=== PATIENT | male | born 1965 | race African-American/Black ===

== ENCOUNTER 2017-07-02 10:54 | Emergency (ER) | payer OTHER ==
[2017-07-02] MEDS ORDERED: Adacel (T-DAP) 0.5 ML VIAL ONE (11:26)
--- NOTE | 2017-07-02 11:35 | RAD ---
RIGHT FOOT 3 VIEWS: Date: 07/02/17 HISTORY: Right foot pain. Stepped on nail. FINDINGS: Lisfranc joint alignment is anatomic. Oblique linear lucency at the base of the second metatarsal on the AP view is favored to represent the crossing of the third metatarsal base. Fracture is not favore d. Pes planus is apparent on the lateral view. No acute fracture, dislocation, or metallic foreign tina s. Small plantar heel spur is noted. IMPRESSION: Incidental type findings as detailed above. No acute osseous abnormalities are demonstrated. POS: ELISHA
[2017-07-02 12:00] LABS: #Eosinphils 0.1 thou/uL (0.0-0.7); #Lymphocytes 1.9 thou/uL (1.20-3.40); #Monocytes 0.6 thou/uL (0.11-0.59); #Neutrophils 3.4 thou/uL (1.40-6.50); %Basophils 0.7 % (0.0-1.0); %Lymphocytes 31.4 % (21.0-51.0); %Monocytes 9.2 % (0.0-10.0); %Neutrophils 56.8 % (42.0-75.0); Hemoglobin 14.6 g/dL (14.0-18.0); Mean Corpuscular HGB CONC 32.9 g/dL (32.0-36.0); Mean Corpuscular Hemoglobin 28.7 pg (27.0-31.0); Mean Corpuscular Volume 87.1 fl (80.0-94.0); Mean Platelet Volume 7.9 fL (7.4-10.4); Platelet Count 209 thou/uL (130-400); RBC Distribution Width 13.7 % (11.5-14.5); Red Blood Cell (RBC) Count 5.08 mill/uL (4.70-6.10)
[2017-07-02 12:20] LABS: ALT (SGPT) 25 U/L (8-55); AST (SGOT) 25 U/L (5-34); Alkaline Phosphatase 79 U/L (40-150); Anion Gap 13 mmol/L (10-20); BUN (Urea Nitrogen) 19 mg/dL (8.4-25.7); Bilirubin, Total 0.4 mg/dL (0.2-1.2); Calc. Creatinine Clearance 0 mL/min (70-130); Calcium 9.1 mg/dL (7.8-10.44); Carbon Dioxide 22 mmol/L (22-29); Chloride 110 mmol/L (98-107); Estimated GFR-MDRD 81; Globulin 3.2 g/dL (2.4-3.5); Glucose 104 mg/dL (70-105); Potassium 4.1 mmol/L (3.5-5.1); Protein, Total 7.2 g/dL (6.0-8.3); Sodium 141 mmol/L (136-145)
[2017-07-02 12:25] LABS: CKMB 3.9 ng/mL (0-6.6); Troponin I Less than 0.010 ng/mL (< 0.028)
[2017-07-02 14:39] LABS: Troponin I Less than 0.010 ng/mL (< 0.028)
--- NOTE | 2017-08-15 12:46 | EKG ---
Test Reason : Blood Pressure : / mmHG Vent. Rate : 076 BPM Atrial Rate : 076 BPM P-R Int : 150 ms QRS Dur : 092 ms QT Int : 418 ms P-R-T Axes : 067 022 033 degrees QTc Int : 470 ms Normal sinus rhythm with sinus arrhythmia Possible Left atrial enlargement Borderline ECG Confirmed by ANALISA BEAVER, KVNG ([id number]), manager editorial KARTHIKEYAN MCLEAN ([id number]) on 08/15/2017 12:45:36 PM Referred By: Confirmed By:KVNG HAUSER MD
== END 2017-07-02 15:17 | disposition home or self-care (01) ==
LOC: ERS 10:54
DX: W45.0XXA Nail entering through skin, initial encounter; Z79.82 Long term (current) use of aspirin; E78.5 Hyperlipidemia, unspecified; E11.9 Type 2 diabetes mellitus without complications; I10 Essential (primary) hypertension; S91.331A Puncture wound without foreign body, right foot, initial encounter; Z79.899 Other long term (current) drug therapy; Z79.84 Long term (current) use of oral hypoglycemic drugs; F17.210 Nicotine dependence, cigarettes, uncomplicated
CPT/HCPCS: 36415; 80053; 82553; 84484; 85025; 90471; 90715; 93005

== ENCOUNTER 2017-11-02 09:49 | Observation (INO) | payer OTHER ==
[2017-11-02 10:27] LABS: #Eosinphils 0.2 thou/uL (0.0-0.7); #Lymphocytes 1.9 thou/uL (1.20-3.40); #Monocytes 0.5 thou/uL (0.11-0.59); #Neutrophils 3.3 thou/uL (1.40-6.50); %Basophils 0.3 % (0.0-1.0); %Eosinophils 2.7 % (0.0-10.0); %Lymphocytes 32.7 % (21.0-51.0); %Neutrophils 56.4 % (42.0-75.0); Hemoglobin 13.8 g/dL (14.0-18.0); Mean Corpuscular HGB CONC 33.8 g/dL (32.0-36.0); Mean Corpuscular Volume 88.7 fL (78.0-98.0); Mean Platelet Volume 7.8 fL (7.4-10.4); Platelet Count 187 thou/uL (130-400); RBC Distribution Width 14.3 % (11.5-14.5); Red Blood Cell (RBC) Count 4.59 mill/uL (4.70-6.10); White Blood Cell (WBC) Count 5.9 thou/uL (4.8-10.8)
[2017-11-02] MEDS ORDERED: Nitroglycerin 2% Ointment 1 INCH/1 GM Packet ONE (10:40)
[2017-11-02 10:42] LABS: Prothrombin Time 13.2 SEC (12.0-14.7)
[2017-11-02 10:43] LABS: PTT 25.8 SEC (22.9-36.1)
[2017-11-02 11:01] LABS: ALT (SGPT) 14 U/L (8-55); AST (SGOT) 11 U/L (5-34); Albumin 3.9 g/dL (3.5-5.0); Alkaline Phosphatase 70 U/L (40-150); Anion Gap 12 mmol/L (10-20); BUN (Urea Nitrogen) 11 mg/dL (8.4-25.7); Bilirubin, Total 0.3 mg/dL (0.2-1.2); CK (CPK) 113 U/L (30-200); Calc. Creatinine Clearance 0 mL/min (70-130); Calcium 8.9 mg/dL (7.8-10.44); Carbon Dioxide 23 mmol/L (22-29); Chloride 109 mmol/L (98-107); Estimated GFR-MDRD 87; Globulin 2.8 g/dL (2.4-3.5); Glucose 154 mg/dL (70-105); Lipase 13 U/L (8-78); Protein, Total 6.7 g/dL (6.0-8.3); Sodium 140 mmol/L (136-145)
[2017-11-02 11:03] LABS: CKMB 1.6 ng/mL (0-6.6); Troponin I Less than 0.010 ng/mL (< 0.028)
--- NOTE | 2017-11-02 11:30 | RAD ---
PORTABLE CHEST: Date: 11-02-17 Time: 10:51 a.m. History: Left sided chest pain. FINDINGS: Comparison is made with 09-30-15. The heart size is normal. No focal areas of consolidation, pneumothorax, lillian edema, or pleural effu sions are seen. IMPRESSION: No radiographic evidence of acute cardiopulmonary process. POS: OFF
[2017-11-02 13:26] VITALS: BMI 40.0
--- NOTE | 2017-11-02 13:27 | HP ---
DATE OF ADMISSION: 11/02/2017 PRIMARY CARE PHYSICIAN: Sweta Pantoja M.D. CHIEF COMPLAINT: Chest pain. HISTORY OF PRESENT ILLNESS: Please note that the patient is an extremely poor historian and, therefo re, the history of present illness is very difficult to obtain. He is very reluctant to answer quest ions and a lot of times he will either stare at you when asked a question or if he does answer the qu estion, it is in a very, very low voice, which was almost barely intelligible, but Mr. Cole is a 52 -year-old gentleman that has a history of hypertension and diabetes mellitus. He says that he has be en having chest pain for the last 3 days. He says it was started while he was playing with his niece . He was not doing anything strenuous with his niece other than just watching her run around in the floor. He denies doing any lifting or pulling, etc. The patient says that he started having pain in the left chest and it radiated into the back. He says it was like a pressure and that he rated it a bout 8/10. He was short of breath with it and felt a little bit dizzy. He also says he has been hav ing blurred vision off and on as well as some very little bit of nausea. He says, however, he attrib uted this to being diabetic. He also complains of having some difficulty with breathing at night and his adds that he was diagnosed with problems with his heart before. Apparently, he was seen in [place] for very similar complaints a few months ago they said and at that time, he apparently under went a stress test and also did some type of test where he drank some type of liquid and they put marianne e type of medicine in his veins and he got warm all over and was told that his heart was okay and red t he was supposed to be referred to see a inspecting engineer. He says that he was also supposed to be sent to see a provisioning specialist, but they never heard anything back from their primary care physician, but when asked if they tried to follow up with their primary care physician on the referrals, they sa id that they had not done that either. The patient also says he was supposed to be get checked for s leep apnea. He says that the referrals were suggested, but had not been made, but once again they di d not follow up on checking on the referrals either. REVIEW OF SYSTEMS: All systems were reviewed and are negative except for that mentioned in the histo ry of present illness. PAST MEDICAL HISTORY: Significant for diabetes mellitus that was diagnosed in August of this year, hyp ertension, high cholesterol and an enlarged heart. When asked if he has had an echo, he believes he did have one, but he cannot remember if it was here or at another location. PAST SURGICAL HISTORY: Negative. ALLERGIES: No known drug allergies. SOCIAL HISTORY: He is . 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 He smokes about a pack a day for the last 40 years. He occasionally drinks. Amanda pedroza has 1 child. FAMILY HISTORY: Significant for hypertension and heart disease as well as diabetes mellitus. CURRENT MEDICATIONS: Include metformin 500 mg twice a day, atorvastatin 10 mg daily, lisinopril 10 m g daily and aspirin 81 mg a day. PHYSICAL EXAMINATION: GENERAL: He is alert and oriented. He appears to be in no acute distress. VITAL SIGNS: Blood pressure was 162/70, heart rate is 60, respiratory rate of 18, temperature is 98. HEENT: Pupils are equal, round and reactive. Extraocular muscles are intact. His sclerae are anict flavio. Throat, there is no erythema, no exudates. NECK: No adenopathy, no bruits. LUNGS: Clear to auscultation. There are no wheezing or rales. CARDIOVASCULAR: He has a normal S1 and S2. There is no S3 or S4. No murmurs, no clicks, no rubs. ABDOMEN: Soft. It is nontender, nondistended. Positive for bowel sounds. There is no rebound or g uarding. EXTREMITIES: There is no clubbing, no cyanosis, no edema. There were some very small ovoid nodules that were palpated in the left chest, one along the third in tercostal space along the left sternal border and the other more laterally and superiorly in the mid pectoralis muscle. They were very easily movable and felt rubbery in texture and there was no fluctu ance and no tenderness. No erythema of the area. NEUROLOGIC: Grossly nonfocal. His muscle strength is intact. IMAGING: On his EKG, it is sinus rhythm, the rate is 66. LABORATORY DATA: CBC, the white blood cell count is 5.9, hemoglobin is 13.8, hematocrit is 40.7, rakel telet count is 187,000. Sodium 140, potassium 4.0, chloride is 109, CO2 is 23, BUN of 13, creatinine 1.08, glucose is 154. Troponin is less than 0.010. ASSESSMENT AND PLAN: This is a 52-year-old gentleman who presents to the emergency room complaining of chest pain. The symptoms were more or less atypical; however, he has multiple risk factors for co ronary artery disease including hypertension, diabetes and elevated cholesterol. However, the patien t says he has had a stress test done at [facility] in [place] recently. Therefore, for the work up, we will be placing him in observation, we will continue to trend his cardiac enzymes, place him o n aspirin and nitrates and beta justino as his heart rate tolerates and we will have him to sign a re lease to see if we can get his records from [place] at [facility]. If he in fact has had a stre ss test and it was negative, then likely he can be discharged home with outpatient referral to Cardio logy. I have explained to him that he will need to follow up with his primary care physician as it s eems as if there was some miscommunication between their office and the patient with regard to his re ferrals and to see if this can be somehow limited. Otherwise, we will be holding his metformin with regard to his diabetes in the event that he needs a cardiac catheterization. He will be placed on a sliding scale insulin and we will continue lisinopril and atorvastatin and further recommendations ar e to follow.
[2017-11-02] MEDS ORDERED: Acetaminophen 325 MG TAB PO PRN (13:42)
[2017-11-02] MEDS ORDERED: Mag-Al 1200 mg/1200 mg/30 ML UDCUP PO PRN (13:42)
[2017-11-02] MEDS ORDERED: Nitroglycerin 2% Ointment 1 INCH/1 GM Packet TOP SCH (14:00)
[2017-11-02 14:32] LABS: Cardiac Risk 4.3 (Less than 4.5)
[2017-11-02 14:33] LABS: Troponin I Less than 0.010 ng/mL (< 0.028)
[2017-11-02 15:23] VITALS: BP 153/73; TEMP 97.9
[2017-11-02 17:25] LABS: Troponin I Less than 0.010 ng/mL (< 0.028)
--- NOTE | 2017-11-02 17:27 | PDOC.EVN ---
Event Note - Event Note Event Note: The records from [facility] in [place] were received, and received. He was admittedaround 09/12/2016, and that time he had aCTA of the chest which was negative for PE, a nuclear stress test which was positive for some inferior soft tissue attenuation, but was essentially negative. Echo was normal with normal LV size and function.
[2017-11-02] MEDS ORDERED: Docusate 100 MG CAP PO SCH (21:00)
--- NOTE | 2017-11-03 03:45 | DIS ---
PRIMARY CARE PHYSICIAN: Dr. Sweta Pantoja. DATE OF ADMISSION: 11/02/2017 DATE OF DISCHARGE: 11/02/2017 DISCHARGE DISPOSITION: Home. PRIMARY DISCHARGE DIAGNOSES: 1. Chest pain, probable noncardiac. 2. Hypertension. 3. Diabetes mellitus. 4. Hyperlipidemia. 5. Tobacco abuse. DISCHARGE MEDICATIONS: The patient is being discharged home on metformin 1000 mg twice a day, lisino pril/hydrochlorothiazide 20/25 one tablet daily, glyburide 2.5 mg daily, Lipitor 40 mg at bedtime, as pirin 81 mg daily, and Norvasc 10 mg daily. CODE STATUS: FULL CODE. ALLERGIES: No known drug allergies. HOSPITAL COURSE: Mr. Cole is a pleasant 52-year-old gentleman, who presented to the emergency room with complaints of chest pain, the description of which was extremely atypical. In discussion with the patient's as well as the patient, it was discovered that he had recently been to the [facility] in [place] for very similar complaints, these records were requested and obtained a nd reviewed. He had been treated by Dr. Sharath Estes, who according to the records appears to be a offset printer. He had had a nuclear stress test done on 09/16/2016, the results of which showed an equivocal myocardial perfusion study. There was an essentially fixed defect at the inferior wall, w hich was probably due to soft tissue attenuation and possible artifact; however, the conclusion was t hat it was not felt to be any findings (02:19) clearly suggest myocardial ischemia or scarring. The LV function looked mildly reduced. He also had a CT angiogram of the chest which was negative for PE. It did show some mild cardiomegaly. However, an echocardiogram was done which was essential ly normal and showed normal left ventricular size and motion and normal ejection fraction. The patie nt was also diagnosed with diabetes mellitus during that visit and later was placed on metformin and glyburide by his primary care physician. He was discharged from the hospital at that time on aspirin , Lipitor, lisinopril/hydrochlorothiazide and it appears as if he has not had the Lipitor refilled re cently and he was not aware of the names and doses of all of his medications. I sat with the patient and discussed the findings from the [facility] in [place]. I gave him the option of s taying and having a cardiac catheterization to get definitive answers as to whether or not he has cor onary artery disease as a stress test is a screening test. I did explain to him the cardiac catheter ization is what some risks, but this would at least put the issue to rest or to go home with the prev ious medications to stop smoking, which was said that he needs to do without question and restart the Lipitor, watch his diet and follow up with Dr. Pantoja. He decided to do the latter instead of havi ng the cardiac catheterization done, he will choose to have a healthy lifestyle, stop smoking, be com pliant with his medications, follow up with Dr. Pantoja and then she can decide whether or not to ref er him to a offset printer. I do agree that he should follow up with the sleep study which was recomme nded back in 2017 and again ____ healthy lifestyle. He does work in a job which seemed to be more or less strenuous and it is possible that his symptoms could be related to a muscle strain as it does s eem to get worse when he lifts his arm. Also, on his exam, there was noted two small little areas li ke nodules which appeared to be ____ clinically to be small lipomas which I do not believe are contri buting to his symptoms.
[2017-11-03] MEDS ORDERED: Enoxaparin Sodium 40 MG/0.4 ML SYRINGE SC SCH (09:00)
[2017-11-03] MEDS ORDERED: Lisinopril 10 MG TAB PO SCH (09:00)
[2017-11-03] MEDS ORDERED: Amlodipine 10 MG TAB PO SCH (09:00)
== END 2017-11-02 17:49 | disposition home or self-care (01) ==
LOC: ERS 09:49 → 2SW 13:24
PROVIDERS: ADMIT Internal Medicine; ATTEND Internal Medicine
DX: R07.89 Other chest pain (principal); E11.9 Type 2 diabetes mellitus without complications; E78.00 Pure hypercholesterolemia, unspecified; I11.9 Hypertensive heart disease without heart failure; F17.210 Nicotine dependence, cigarettes, uncomplicated; Z79.82 Long term (current) use of aspirin; Z79.84 Long term (current) use of oral hypoglycemic drugs; Z79.899 Other long term (current) drug therapy
CPT/HCPCS: 36415; 71045; 80053; 80061; 82550; 82553; 83690; 83880; 84484; 85025; 85610; 85730; 93005

== ENCOUNTER 2018-11-28 17:42 | Observation (INO) | payer OTHER ==
--- NOTE | 2018-11-28 19:12 | RAD ---
Chest one view HISTORY: Chest pain. COMPARISON: 11/02/2017. FINDINGS: Cardiac silhouette is magnified by projection. Pulmonary vasculature upper limits of normal and favored to account for increased markings at the right base. No confluent airspace consolidation or evidence of pneumothorax. adult daycare coordinator leads overlie the chest. IMPRESSION: Stable radiographic appearance of the chest. No active cardiopulmonary abnormalities are demonstrated.
[2018-11-28 19:33] LABS: #Eosinphils 0.2 thou/uL (0.0-0.7); #Lymphocytes 2.9 thou/uL (1.20-3.40); #Monocytes 0.7 thou/uL (0.11-0.59); #Neutrophils 2.5 thou/uL (1.40-6.50); %Basophils 0.5 % (0.0-1.0); %Eosinophils 3.7 % (0.0-10.0); %Lymphocytes 45.7 % (21.0-51.0); %Monocytes 11.3 % (0.0-10.0); %Neutrophils 38.7 % (42.0-75.0); Hemoglobin 14.8 g/dL (14.0-18.0); Mean Corpuscular HGB CONC 33.4 g/dL (32.0-36.0); Mean Corpuscular Hemoglobin 30.6 pg (27.0-31.0); Mean Corpuscular Volume 91.6 fL (78.0-98.0); Mean Platelet Volume 8.8 fL (7.4-10.4); Platelet Count 201 thou/uL (130-400); RBC Distribution Width 13.6 % (11.5-14.5); Red Blood Cell (RBC) Count 4.82 mill/uL (4.70-6.10); White Blood Cell (WBC) Count 6.4 thou/uL (4.8-10.8)
[2018-11-28 19:52] LABS: ALT (SGPT) 20 U/L (8-55); AST (SGOT) 20 U/L (5-34); Alkaline Phosphatase 72 U/L (40-150); Anion Gap 11 mmol/L (10-20); BUN (Urea Nitrogen) 14 mg/dL (8.4-25.7); Bilirubin, Total 0.3 mg/dL (0.2-1.2); CK (CPK) 368 U/L (30-200); Calc. Creatinine Clearance 0 mL/min (70-130); Calcium 9.2 mg/dL (7.8-10.44); Carbon Dioxide 25 mmol/L (22-29); Chloride 109 mmol/L (98-107); Estimated GFR-MDRD 72; Glucose 107 mg/dL (70-105); Potassium 4.2 mmol/L (3.5-5.1); Sodium 141 mmol/L (136-145)
--- NOTE | 2018-11-28 20:03 | CT ---
CT OF THE BRAIN WITHOUT CONTRAST: 11/28/18 INDICATION: History of left arm weakness and pain that began two days ago with blurred vision in the left eye. COMPARISON: None. FINDINGS: There are two punctate radiopaque densities seen within the periventricular white matter adjacent to the anterior horn of the right lateral ventricle. There is mild chronic small vessel white matter isc hemic change. Septum pellucidum and third ventricle are midline. No definite acute infarct, hemorrhag e, or hydrocephalus is present. Mastoid air cells and paranasal sinuses are clear. IMPRESSION: 1. Small punctate calcification seen within the periventricular white matter of the right fronta l lobe adjacent to the anterior horn of the right lateral ventricle is nonspecific and may reflect se quela of prior trauma or infection. 2. No definite acute infarct, hemorrhage, or hydrocephalus is noted. 3. Follow-up MRI of the brain with and without contrast is recommended for further characterizat ion. POS: BH
[2018-11-28] MEDS ORDERED: Aspirin Chewable 81 MG TAB ONE ×2 (21:52→21:54)
[2018-11-29 01:53] VITALS: BMI 41.0
[2018-11-29] MEDS ORDERED: traMADol HCl 50 MG TAB PO PRN (02:38)
[2018-11-29] MEDS ORDERED: Dextrose 50% Abboject 50 ML SYRINGE SLOW IVP PRN (02:40)
[2018-11-29] MEDS ORDERED: Dextrose 5% in Water 1,000 ML IV PRN (02:40)
[2018-11-29] MEDS ORDERED: HumaLOG 300 UNITS/3 ML VIAL SC PRN ×2 (02:40)
[2018-11-29] MEDS ORDERED: Cyclobenzaprine 10 MG TAB PO SCH (02:45)
[2018-11-29] MEDS ORDERED: traMADol HCl 50 MG TAB PO SCH (02:45)
[2018-11-29] MEDS ORDERED: Acetaminophen 650 MG Suppository PR PRN (04:59)
[2018-11-29] MEDS ORDERED: Ondansetron ODT 4 MG TAB PO PRN (04:59)
[2018-11-29] MEDS ORDERED: Acetaminophen 325 MG TAB PO PRN (04:59)
[2018-11-29] MEDS ORDERED: Ondansetron PF 4 MG/2 ML Vial IVP PRN (04:59)
--- NOTE | 2018-11-29 05:41 | HP ---
PRIMARY CARE PHYSICIAN: Sweta Pantoja MD CHIEF COMPLAINT: Left arm pain and weakness. HISTORY OF PRESENT ILLNESS: Mr. Cole is a 53-year-old gentleman, who presents to the emergency department today due to increasing discomfort involving his left upper extremity. He states he has had weakness in the arm and pain for approximately 1 week. Today, it became unbearable. The patient states he thought it was due to sleeping on the arm. He does report some altered sensation. He denies any injuries or trauma. No strenuous activity, or heavy lifting that he can recall. Denies having any neck pain. In the emergency department, there was mention of the patient running out of his medications, which he does confirm. He has a history of diabetes and hypertension. Difficulty obtaining history from the patient with regard to the pain. He is unable to characterize it. His states he has had some tremors in the left arm and limited range of motion. PAST MEDICAL HISTORY: 1. Type 2 diabetes mellitus. 2. Hyperlipidemia. 3. Hypertension. 4. Depression. 5. History of homicidal ideations. PAST SURGICAL HISTORY: None. SOCIAL HISTORY: The patient denies any drug use. Reports drinking socially twice a month. He smokes 2 packs per day. ALLERGIES: NO KNOWN DRUG ALLERGIES. CURRENT MEDICATIONS: 1. Metformin. 2. Atorvastatin. 3. Lisinopril. 4. Aspirin. PHYSICAL EXAMINATION: GENERAL: The patient appears to be in some discomfort, but in no significant distress. VITAL SIGNS: Temperature 97.8, pulse 76, respirations 18, O2 saturation 95% on room air, blood pressure 132/70. HEENT: Normocephalic and atraumatic. Pupils are equal, round, and reactive to light. Sclerae without icterus. Oropharynx is clear. NECK: Supple. No lymphadenopathy. LUNGS: Clear to auscultation bilaterally without wheezes, rales, or rhonchi. CARDIAC: Regular rate and rhythm. ABDOMEN: Soft, nontender, nondistended. Normoactive bowel sounds present. EXTREMITIES: Left upper extremity notable for significant tenderness to light palpation of the arm from his elbow up to his shoulder. He has some bulging of the triceps muscle. Tenderness with light palpation of the biceps muscle. No warmth to touch. No rash. Shoulder joint seems to be nontender. Limited range of motion due to increased pain. Per patient, no altered sensation; however, he does have weakness in the left arm including his hand. NEUROLOGIC: Facial movements normal. Normal facial sensation. Power 5/5 in lower extremities. LABORATORY DATA: Full blood count unremarkable. Platelets 101. Sodium 141, potassium 4.2, BUN 14, creatinine 1.27, GFR 72, glucose 107, calcium 9.2. LFTs unremarkable. CK 368. Troponin negative. IMAGING DATA: CT of the brain done in the emergency department due to concern that the left upper extremity weakness was associated with stroke. He was found to have a punctate calcification involving the frontal lobe. MRI with and without contrast recommended. A chest x-ray was also obtained showing no acute intrathoracic abnormalities. IMPRESSION AND PLAN: Mr. Cole is a 53-year-old gentleman, who presents with left upper extremity pain and weakness for 1 week. Denies any trauma or injuries. On examination, he has significant tenderness with light palpation of the left upper arm with notable weakness and limited range of motion due to pain. Denies any neck pain. We will request CT imaging of the left upper extremity. There was initial concern for possible stroke; however, it truly appears to be musculoskeletal in nature. Therefore, we will hold off on any stroke workup at this present time. The CT of the brain did demonstrate a punctate calcification involving the right frontal lobe. MRI with and without contrast had been recommended for further characterization, therefore that was ordered. The patient has been off all his medications for the last several days. We will resume his antihypertensives and monitor his blood pressure. We will initiate an insulin sliding scale. We will hold off on metformin given the fact that he will be receiving contrast without MRI. We will continue to monitor his renal function. For his pain, we will try tramadol and lidocaine patch. Code status is full. His surrogate decision maker is his , Beatrice Cole. We will initiate GI prophylaxis with famotidine. The patient's case was discussed with attending, who agrees upon care as described above. Job ID: [id number]
[2018-11-29] MEDS: Lisinopril/Hydrochlorothiazide 20/25 mg Tablet PO SCH (09:04)
[2018-11-29] MEDS: Aspirin 81 mg Enteric Coated Tablet PO SCH (09:04)
[2018-11-29] MEDS: Nicotine 14 MG PATCH TD SCH (09:05)
[2018-11-29] MEDS: Lidocaine 5% Patch TD SCH (09:05)
--- NOTE | 2018-11-29 11:33 | MRI ---
MRI brain with and without contrast: DATE: 11/29/2018 HISTORY: 53-year-old male with tiny brain calcification. Altered mental status. TECHNIQUE: Multiplanar, multisequence MRI of the brain obtained pre and post IV injection of gadolinium based co ntrast agent. FINDINGS: There is no obstructive hydrocephalus. There is no midline shift or any other evidence of mass effect . There is magnetic susceptibility blowout artifact obscuring portions of the left side of the brain, affecting some sequences much more than others. For example, the gradient echo sequence and di ffusion-weighted sequences are severely affected by this, with complete obscuring of much of the left cerebral hemisphere, and partial degradation of images of the right cerebral hemisphere on both sequences. The other sequences are less affected. Review of the CT yesterday demonstrates that this is due to a tiny 2 x 3 mm metallic foreign body embedded in the subcutaneous fat abutting the lateral surface of the left temporalis muscle. The following observations are with respect to the right cerebral hemisphere. There is no extra-axial fluid collection. There are mild chronic ischemic white matter changes due to microvascular atherosclerosis. There is otherwise no major intra-axial signal abnormality, abnormal enhancement, mass, recent hemorrhage, or restricted diffusion. The punctate foc al hyperdensity in the deep right frontal cerebral white matter does not correspond to any abnormality found on this MRI. IMPRESSION: 1) mild chronic ischemic white matter changes. 2) tiny ferromagnetic metallic foreign body in the left lateral subcutaneous fat abutting the outer s urface of the temporalis muscle. 3) otherwise negative.
[2018-11-29] MEDS: Famotidine/PF 20 mg/2ml Vial SLOW IVP SCH ×2 (11:39→20:18)
--- NOTE | 2018-11-29 12:26 | CT ---
CT OF LEFT UPPER EXTREMITY PERFORMED WITHOUT CONTRAST ENHANCEMENT: HISTORY: Left arm pain and tenderness x 1 week. Limited range of motion. The patient states pain radiates fr om mid upper arm down into forearm. FINDINGS: Shoulder joint appears unremarkable. Some minimal osteophytic spurring of the coronoid process of th e ulna. The ulna otherwise appears unremarkable. There are no fractures. No lytic or blastic bony change. Review of soft tissues shows no signs of any inflammatory-type change. IMPRESSION: Unremarkable CT of the left upper extremity. If indicated, further evaluation with MRI may be of gilson efit. POS: PROSPERC
[2018-11-29] MEDS ORDERED: Gadobenate Dimeglumine 529 MG/1 ML (20ML VIAL) ONE (17:18)
[2018-11-29] MEDS: Atorvastatin Calcium 40 MG TAB PO SCH (20:18)
[2018-11-30] MEDS: Nicotine 14 MG PATCH TD SCH (05:26)
[2018-11-30 06:18] LABS: #Basophils 0.1 thou/uL (0.0-0.2); #Eosinphils 0.2 thou/uL (0.0-0.7); #Lymphocytes 2.3 thou/uL (1.20-3.40); #Monocytes 0.6 thou/uL (0.11-0.59); #Neutrophils 2.4 thou/uL (1.40-6.50); %Basophils 0.9 % (0.0-1.0); %Lymphocytes 40.9 % (21.0-51.0); %Monocytes 10.7 % (0.0-10.0); %Neutrophils 43.5 % (42.0-75.0); Hemoglobin 14.3 g/dL (14.0-18.0); Mean Corpuscular HGB CONC 33.5 g/dL (32.0-36.0); Mean Corpuscular Hemoglobin 30.5 pg (27.0-31.0); Mean Corpuscular Volume 90.8 fL (78.0-98.0); Mean Platelet Volume 9.3 fL (7.4-10.4); Platelet Count 172 thou/uL (130-400); RBC Distribution Width 13.4 % (11.5-14.5); Red Blood Cell (RBC) Count 4.68 mill/uL (4.70-6.10); White Blood Cell (WBC) Count 5.5 thou/uL (4.8-10.8)
[2018-11-30 06:39] LABS: Anion Gap 10 mmol/L (10-20); BUN (Urea Nitrogen) 12 mg/dL (8.4-25.7); Calc. Creatinine Clearance 134 mL/min (70-130); Carbon Dioxide 25 mmol/L (22-29); Chloride 107 mmol/L (98-107); Estimated GFR-MDRD Greater than 90; Glucose 133 mg/dL (70-105); Potassium 3.9 mmol/L (3.5-5.1); Sodium 138 mmol/L (136-145)
[2018-11-30] MEDS: Lidocaine 5% Patch TD SCH (08:33)
[2018-11-30] MEDS: Lisinopril/Hydrochlorothiazide 20/25 mg Tablet PO SCH (08:33)
[2018-11-30] MEDS: Famotidine/PF 20 mg/2ml Vial SLOW IVP SCH ×2 (08:33→21:09)
[2018-11-30] MEDS: Aspirin 81 mg Enteric Coated Tablet PO SCH (08:34)
[2018-11-30] MEDS ORDERED: Ketorolac Tromethamine 30 MG/ML VIAL IVP SCH (14:30)
[2018-11-30] MEDS: Cyclobenzaprine 10 MG TAB PO SCH ×2 (14:41→21:07)
--- NOTE | 2018-11-30 15:25 | ULT ---
LEFT UPPER EXTREMITY VENOUS DOPPLER ULTRASOUND: HISTORY: Left upper extremity pain and swelling, edema TECHNIQUE: Grayscale color-flow and spectral Doppler imaging of the deep venous systems of the left upper extrem ity was performed.. FINDINGS: There is good flow, compression and normal spectral waveforms in the internal jugular, subclavian, ax illary, brachial, radial, ulnar, basilic and cephalic veins. IMPRESSION: No evidence of DVT in the left upper extremity.
--- NOTE | 2018-11-30 17:16 | PDOC.HOSPP ---
- Subjective Encounter Date: 11/30/18 Encounter Time: 14:45 Subjective: pt up in bed complains of pain to his left upper ext - Objective Vital Signs & Weight: Vital Signs (12 hours) Temp Pulse Resp BP BP Pulse Ox 11/30/18 15:39 98.2 F 61 16 129/68 97 11/30/18 11:43 97.9 F 62 16 115/62 97 11/30/18 08:33 54 L 135/67 11/30/18 07:44 98.2 F 63 16 135/67 97 Weight Weight 254 lb I&O: 11/29/18 11/30/18 12/01/18 06:59 06:59 06:59 Intake Total 480 640 Balance 480 640 Result Diagrams: 11/30/18 05:26 11/30/18 05:26 Additional Labs: Accuchecks 11/30/18 11/30/18 11/30/18 16:30 10:47 05:35 POC Glucose 157 H 182 H 130 H 11/29/18 19:40 POC Glucose 143 H Hospitalist ROS - Review of Systems Cardiovascular: denies: chest pain, palpitations, orthopnea, paroxysmal noc. dyspnea, edema, light headedness, other Gastrointestinal: denies: nausea, vomitting, abdominal pain, diarrhea, constipation, melena, hematochezia, other Musculoskeletal: reports: arm pain - Medication Medications: Active Medications Generic Name Dose Route Start Last Admin Trade Name Freq PRN Reason Stop Dose Admin Aspirin 81 mg 11/29/18 09:00 11/30/18 08:34 Ecotrin PO 81 mg DAILY PREET Administration Atorvastatin Calcium 40 mg 11/29/18 21:00 11/29/18 20:18 Lipitor PO 40 mg HS PREET Administration Cyclobenzaprine HCl 10 mg 11/30/18 15:00 11/30/18 14:41 Flexeril PO 10 mg TID PREET Administration Famotidine 20 mg 11/29/18 09:00 11/30/18 08:33 Pepcid SLOW IVP 20 mg Q12HR PREET Administration Lisinopril/HCTZ 1 tab 11/29/18 09:00 11/30/18 08:33 Prinizide 20-25 PO 1 tab DAILY PREET Administration Lidocaine 1 patch 11/29/18 09:00 11/30/18 08:33 Lidoderm 5% Patch TD 1 patch DAILY PREET Administration Nicotine 14 mg 11/29/18 05:00 11/30/18 05:26 Nicoderm Patch TD 14 mg Q24HR PREET Administration Tramadol HCl 50 mg 11/29/18 02:38 11/29/18 16:03 Ultram PO 50 mg Q4H PRN Administration Pain - Exam Heart: negative: RRR, no murmur, no gallops, no rubs, normal peripheral pulses, irregular, diminshed peripheral pulses, murmur present, II/IV, III/IV Respiratory: negative: CTAB, no wheezes, no rales, no ronchi, normal chest expansion, no tachypnea, normal percussion, rales, rhonchi, tachypneic, wheezes Gastrointestinal: negative: soft, non-tender, non-distended, normal bowel sounds , no palpable masses, no hepatomegaly, no splenomegaly, no bruit, no guarding, no rigidity, tender to palpation, distended, diminished bowl sounds, voluntary guarding Extremeties - other findings: left arm pain on palpation Hosp A/P (1) Left arm pain Code(s): M79.602 - PAIN IN LEFT ARM Status: Acute (2) HTN (hypertension) Code(s): I10 - ESSENTIAL (PRIMARY) HYPERTENSION Status: Acute (3) Diabetes Code(s): E11.9 - TYPE 2 DIABETES MELLITUS WITHOUT COMPLICATIONS Status: Acute - Plan pt has pain to his left arm. will get doppler of his left upper ext. will start him on toradol and muscle relaxant. MRI no stroke. He had an injury to his left temporal area.
[2018-11-30] MEDS: Atorvastatin Calcium 40 MG TAB PO SCH (21:07)
[2018-11-30] MEDS: Ketorolac Tromethamine 30 MG/ML VIAL IVP SCH (21:08)
[2018-12-01] MEDS: Nicotine 14 MG PATCH TD SCH (05:37)
[2018-12-01] MEDS: Ketorolac Tromethamine 30 MG/ML VIAL IVP SCH (05:37)
[2018-12-01] MEDS: Lidocaine 5% Patch TD SCH (08:55)
[2018-12-01] MEDS: Lisinopril/Hydrochlorothiazide 20/25 mg Tablet PO SCH (08:55)
[2018-12-01] MEDS: Famotidine/PF 20 mg/2ml Vial SLOW IVP SCH (08:56)
[2018-12-01] MEDS: Cyclobenzaprine 10 MG TAB PO SCH (08:56)
[2018-12-01] MEDS: Aspirin 81 mg Enteric Coated Tablet PO SCH (08:56)
--- NOTE | 2018-12-01 11:02 | RAD ---
EXAM: XR Elbow Lt 4 View STANDARD PROVIDED CLINICAL HISTORY: Pain FINDINGS: There is no evidence for fracture or other acute osseous abnormality. Alignment appears anatomic. Ryann nt spaces appear preserved. IMPRESSION: No evidence for an acute osseous abnormality. If there is persistent clinical concern, conservative m anagement and follow-up imaging advised.
[2018-12-01 11:49] VITALS: BP 150/80; TEMP 97.5
--- NOTE | 2018-12-01 21:50 | DIS ---
DATE OF ADMISSION: 11/28/2018 DATE OF DISCHARGE: 12/01/2018 DISCHARGE DIAGNOSES: 1. Left arm pain. 2. Hypertension. 3. Diabetes. HOSPITAL COURSE: The patient is a 53-year-old male, who initially presented to the hospital on 11/29 with left arm pain and weakness. He denied any trauma to that left arm. The patient initially when a stroke protocol, he underwent a CT brain, which just indicated a small punctate calcification seen in the periventricular white matter of the right frontal lobe adjacent to the anterior horn of the right lateral ventricle is nonspecific and may be a reflection of sequela of prior trauma. He did undergo an MRI of brain, which did not indicate any acute stroke, it just indicated mild chronic ischemic white matter changes. However, he did have a tiny ferromagnetic metallic foreign body to the left lateral subcutaneous fat abutting the outer surface of the temporalis muscle. The patient stated that he did have trauma to that area in the past. We also underwent a vascular ultrasound, which was negative. No indication of DVT. The patient was put on Toradol and Flexeril and his pain improved. He was able to move his extremity a while. Also, I did an x-ray of the left elbow, which did not indicate any osseous abnormalities. The patient will be discharged home with muscle relaxant and also with antiinflammatory. HOME MEDICATIONS: His home medications will be as of the followin. Atorvastatin 40 mg at bedtime. 2. Flexeril 10 mg t.i.d. 3. Pepcid 20 mg daily. 4. Ketoralac 10 mg q.8 hours p.r.n. 5. Lisinopril/hydrochlorothiazide 1 p.o. daily. 6. Glyburide 2.5 q.a.m. 7. Metformin 1000 b.i.d. 8. Aspirin 81 mg daily. PHYSICAL EXAMINATION: VITAL SIGNS: Temperature 97.5, pulse 61, respiratory rate 16, O2 saturation 98% on room air, blood pressure 150/80. GENERAL: He is awake, alert, and oriented x3. Does not appear in distress. CV: S1, S2 present. No murmurs, rubs, or gallops. ABDOMEN: Soft, nontender. Bowel sounds are present x2. EXTREMITIES: His left extremity is more stable to touch, compared to yesterday he had significant amount of pain. He is also able to move that left arm and he will be discharged home. Job ID: [id number]
--- NOTE | 2018-12-02 01:28 | EKG ---
Test Reason : Blood Pressure : / mmHG Vent. Rate : 058 BPM Atrial Rate : 058 BPM P-R Int : 164 ms QRS Dur : 096 ms QT Int : 434 ms P-R-T Axes : 059 014 026 degrees QTc Int : 426 ms Sinus bradycardia Otherwise normal ECG Confirmed by DINO CARREON ([id number]), editorial clerk KARTHIKEYAN MCLEAN ([id number] on 12/02/2018 1:27:25 AM Referred By: Confirmed By:DINO CARREON
== END 2018-12-01 13:48 | disposition home or self-care (01) ==
LOC: ERS 17:42 → 2SE 21:58
PROVIDERS: ADMIT Hospitalist; ATTEND Hospitalist
DX: M79.602 Pain in left arm (principal); R53.1 Weakness; E11.9 Type 2 diabetes mellitus without complications; E78.5 Hyperlipidemia, unspecified; I10 Essential (primary) hypertension; F32.9 Major depressive disorder, single episode, unspecified; F17.210 Nicotine dependence, cigarettes, uncomplicated; M79.5 Residual foreign body in soft tissue; Z79.82 Long term (current) use of aspirin; Z79.84 Long term (current) use of oral hypoglycemic drugs; Z79.899 Other long term (current) drug therapy
CPT/HCPCS: 36415; 36416; 70450; 70553; 71045; 80048; 80053; 82550; 84484; 85025; 93005; 96374; 96375; 96376; A9577; G0378; J1885; S0028